=== PATIENT | female | born 1945 | race Caucasian/White ===

== ENCOUNTER 2019-07-25 10:13 | Outpatient (CLI) | payer MEDICARE, OTHER, SELFPAY ==
[2019-07-25 11:23] LABS: Free T4 Free Thyroxine 1.36 ng/mL (0.78-2.19)
[2019-07-25 11:29] LABS: Thyroid Stimulating Hormone 0.197 uIU/mL (0.465-4.680)
== END 2019-07-25 10:14 | disposition home or self-care (01) ==
PROVIDERS: Visit Provider Physician Assistant
DX: E03.9 Hypothyroidism, unspecified (principal)
CPT/HCPCS: 36415; 84439; 84443

== ENCOUNTER 2020-02-02 11:00 | Outpatient (CLI) | payer MEDICARE, OTHER, SELFPAY ==
[2020-02-02 12:15] LABS: Free T4 Free Thyroxine 1.23 ng/mL (0.78-2.19)
[2020-02-05 13:12] LABS: Triiodothyronine T3 Free 2.9 pg/mL (2.3-4.2)
== END 2020-02-02 11:01 | disposition home or self-care (01) ==
PROVIDERS: Visit Provider Physician Assistant
DX: E03.9 Hypothyroidism, unspecified (principal)
CPT/HCPCS: 36415; 84439; 84443; 84481

== ENCOUNTER → 2020-10-13 09:19 | Outpatient (CLI) | payer MEDICARE, OTHER, SELFPAY ==
--- NOTE | ~2020-10-13 | DEXA_ITS ---
Bone Density Report Name: Carlotta Ramos Age: 75 Sex: Female Ethnicity: White Date of : 1945 Indication: postmenopausal; screening for osteoporosis; height loss; prior fracture; hysterectomy; Referring Provider: Tosha Rivas Study: Bone densitometry was performed. Exam Date: October 13, 2020 Accession number: [id number] Bone Density: Region BMD T-score Z-score Classification AP Spine (L1-L4) 1.100 0.5 2.9 Normal Femoral Neck (Left) 0.711 -1.2 0.9 Osteopenia Total Hip (Left) 0.879 -0.5 1.3 Normal Femoral Neck (Right) 0.727 -1.1 1.0 Osteopenia Total Hip (Right) 0.834 -0.9 0.9 Normal Total Hip Mean 0.857 -0.7 1.1 Normal World Health Organization criteria for BMD impression classify patients as: Normal (T-score at or above -1.0), Osteopenia (T-score between -1.0 and -2.5), or Osteoporosis (T-score at or below -2.5). 10-year Fracture Risk: FRAX not reported because: Prior hip or vertebral fracture Clinical Information Provided by Patient: Have had a previous hip or vertebral fracture Has had a low trauma fracture Has used the following medications: Calcium Has the following medical conditions: Hysterectomy Patient maximum height was 62.25 Menopause Age: 49 No regular weight bearing exercise Drinks caffeinated beverages Onset of menses at age 10 Number of children 3 Impression: The patient has low bone mass, based on the Left Femoral Neck T-score. The patient has risk factors, including: previous fracture. Discussion: INCREASED RISK OF FRACTURE DUE TO HISTORY OF FRACTURE. The patient's previous fracture puts the patient at high risk of a future fracture. In untreated patients, the risk of osteoporotic fracture increases approximately two-fold for each 1.0 SD decrease in T-score. Low bone density is not the only risk factor for fracture; also consider factors such as patient's age, frailty or poor health, risk of falling, risk of injury, previous osteoporotic fracture, family history of osteoporosis, cigarette smoking, low body weight, etc. Not everyone with a low trauma fracture has osteoporosis; osteomalacia and other metabolic bone disorders should also be considered. Patients who have osteoporosis should be evaluated for specific diseases and conditions (secondary causes) that may cause or contribute to bone loss and fracture risk. National Osteoporosis Foundation (NOF) recommends pharmacologic intervention for patients with a prior hip or vertebral fracture regardless of BMD T-score. The patient should follow a healthful lifestyle (good nutrition with adequate calcium and vitamin D, and appropriate weight-bearing exercise). Follow-Up: Consider a repeat BMD and Vertebral Fracture Assessment (VFA) exam in 2 years or sooner if medically necessary, to reassess this patient's status. Reported by:
== END ==
PROVIDERS: PCP Internal Medicine Endocrinology, Diabetes & Metabolism; Visit Provider Internal Medicine Endocrinology, Diabetes & Metabolism
DX: Z78.0 Asymptomatic menopausal state (principal); M85.852 Other specified disorders of bone density and structure, left thigh; M85.851 Other specified disorders of bone density and structure, right thigh
CPT/HCPCS: 77080

== ENCOUNTER 2021-09-12 10:15 | Outpatient (CLI) | payer MEDICARE, OTHER, SELFPAY ==
[2021-09-12 17:59] LABS: Free T4 Free Thyroxine 1.44 ng/mL (0.78-2.19)
== END 2021-09-12 10:16 | disposition home or self-care (01) ==
LOC: ANHGOSHLAB 10:19
PROVIDERS: PCP Internal Medicine; Visit Provider Internal Medicine Endocrinology, Diabetes & Metabolism
DX: E03.9 Hypothyroidism, unspecified (principal); E04.1 Nontoxic single thyroid nodule
CPT/HCPCS: 36415; 84439; 84443

== ENCOUNTER 2022-04-17 09:35 | Outpatient (CLI) | payer MEDICARE, OTHER, SELFPAY ==
[2022-04-17 13:37] LABS: Vitamin D 25 Hydroxy 48.9 ng/mL
[2022-04-17 13:52] LABS: Thyroid Stimulating Hormone 0.955 uIU/mL (0.465-4.680)
== END 2022-04-17 09:36 | disposition home or self-care (01) ==
LOC: ANHWCLAB 09:38
PROVIDERS: PCP Internal Medicine; Visit Provider Internal Medicine Endocrinology, Diabetes & Metabolism
DX: M85.80 Other specified disorders of bone density and structure, unspecified site (principal); E04.1 Nontoxic single thyroid nodule; T17.320A Food in larynx causing asphyxiation, initial encounter; E03.9 Hypothyroidism, unspecified
CPT/HCPCS: 36415; 82306; 84439; 84443

== ENCOUNTER → 2022-04-20 10:23 | Outpatient (CLI) | payer MEDICARE, OTHER, SELFPAY ==
--- NOTE | ~2022-04-20 | US_ITS ---
Thyroid ultrasound. Clinical History: Nontoxic nodular Findings: Real-time sonography of the thyroid gland was performed. The right lobe measures 3.3 x 1.3 x 1.4 cm. The left lobe measures 3.8 x 2.1 x 1.3 cm. The isthmus is 3 mm in AP diameter. There is a 5 mm hyperechoic solid nodule in the right upper pole. There is a 1.8 cm cystic nodule in the left thyroid lobe. Impression: Clinically insignificant thyroid nodules, as detailed above. Reviewed, dictated and finalized at location [facility] Impression: Clinically insignificant thyroid nodules, as detailed above.
== END ==
PROVIDERS: PCP Internal Medicine; Visit Provider Internal Medicine Endocrinology, Diabetes & Metabolism
DX: E04.2 Nontoxic multinodular goiter (principal)
CPT/HCPCS: 76536

== ENCOUNTER 2022-10-16 09:15 | Outpatient (CLI) | payer MEDICARE, OTHER, SELFPAY ==
[2022-10-16 17:56] LABS: Free T4 Free Thyroxine 1.48 ng/mL (0.78-2.19)
== END 2022-10-16 09:16 | disposition home or self-care (01) ==
LOC: ANHWCLAB 09:17
PROVIDERS: PCP Internal Medicine; Visit Provider Internal Medicine Endocrinology, Diabetes & Metabolism
DX: E03.9 Hypothyroidism, unspecified (principal)
CPT/HCPCS: 36415; 84439; 84443